=== PATIENT | female | born 1985 ===

== ENCOUNTER 2017-09-16 10:31 | Emergency (ER) | payer MEDICAID ==
[~2017-09-16] VITALS: Ht 157.5 cm; Wt 107.5 kg
[~2017-09-16 10:31] MED LIST: AMOX-291 PO; DOCU-131 PO; IBUP-1222 PO; NITR100C56 PO; OXYC-302 PO; PREN1TAB60 PO; VALA10004 PO; VALA500T4 PO
[2017-09-16] MEDS ORDERED: DIPHENHYDRAMINE 50 MG/ML, 1ML IM ONE (11:30)
[2017-09-16] MEDS ORDERED: PROCHLORPERAZINE 5 MG/ML, 2ML IM ONE (11:30)
[2017-09-16] MEDS ORDERED: KETOROLAC 30 MG/1 ML IM ONE (11:30)
[2017-09-16] MEDS ORDERED: DIPHENHYDRAMINE 50 MG/ML, 1ML ONE (11:38)
[2017-09-16] MEDS ORDERED: KETOROLAC 30 MG/1 ML ONE (11:38)
[2017-09-16] MEDS ORDERED: PROCHLORPERAZINE 5 MG/ML, 2ML ONE (11:38)
[2017-09-16 12:43] VITALS: BP 119/68
== END 2017-09-16 12:50 | disposition home or self-care (01) ==
LOC: ED 12:30
DX: G43.909 Migraine, unspecified, not intractable, without status migrainosus (principal)
CPT/HCPCS: 96372; 99284; J0780; J1200; J1885

== ENCOUNTER 2020-08-20 21:42 | Emergency (ER) | payer MEDICAID ==
[~2020-08-20] VITALS: Ht 157.5 cm; Wt 110.0 kg
[~2020-08-20 21:42] MED LIST changes: -OXYC-302 PO; +OXYC1TAB14 PO
[2020-08-20 21:46] VITALS: BP 146/79
[2020-08-21] MEDS ORDERED: NEOSPORIN OINT. PKT 1 PACKET ONE ×2 (00:14→00:20)
--- NOTE | 2020-08-21 00:17 | NUR ---
PT GIVEN DISCHARGE INSTRUCTIONS AND EDUCATION. PT VERBALIZED UNDERSTANDING. AMBULATED TO DISCHARGE DESK WITH STEADY GAIT.
== END 2020-08-21 00:40 | disposition home or self-care (01) ==
LOC: ED 08-21 00:10
DX: S50.812A Abrasion of left forearm, initial encounter (principal); S50.811A Abrasion of right forearm, initial encounter; M25.561 Pain in right knee; E11.9 Type 2 diabetes mellitus without complications; M79.661 Pain in right lower leg; W01.0XXA Fall on same level from slipping, tripping and stumbling without subsequent striking against object, initial encounter; Y93.89 Activity, other specified; Y92.009 Unspecified place in unspecified non-institutional (private) residence as the place of occurrence of the external cause; Y99.8 Other external cause status
CPT/HCPCS: 99284